=== PATIENT | male | born 1930 | race Hispanic/Latino ===

== ENCOUNTER 2019-02-04 10:05 | Observation (INO) | payer MEDICARE ==
--- NOTE | 2019-01-31 09:54 | Diagnostic Imaging Report ---
EXAMINATION: PA and lateral views of the chest. COMPARISON: None CLINICAL HISTORY: Preoperative for arm surgery DISCUSSION: The lungs are well-inflated. Coarse prominence of the pulmonary interstitium likely age-related fibrotic changes. No gross consolidation, pleural effusion, or pneumothorax. Cardiomediastinal contour is notable for tortuosity and atherosclerotic calcification of the thoracic aorta and prominence of the central pulmonary arteries suggestive of pulmonary hypertension. Normal heart size. Acute, comminuted and markedly displaced fracture of the surgical neck of the right humerus. Regional osseous structures are otherwise intact. IMPRESSION: No acute cardiopulmonary abnormality. Acute, comminuted and displaced fracture of the surgical neck of the right humerus. Signed by: Dr. Bob Snyder M.D. on 01/31/2019 9:50 AM
[2019-02-03 08:36] LABS: BASOPHILS % 0.7 % (0.0-1.0); EOSINOPHILS # (AUTO) 0.2 (0.0-0.4); EOSINOPHILS % 4.3 % (0.0-6.0); HEMATOCRIT 35.6 % (38.2-49.6); HEMOGLOBIN 11.8 g/dL (14.0-18.0); LYMPHOCYTES # (AUTO) 1.2 (1.0-3.2); LYMPHOCYTES % 28.8 % (18.0-39.1); MEAN CORPUSCULAR HEMOGLOBIN 34.9 pg (28-32); MEAN CORPUSCULAR HGB CONC 33.1 g/dL (31-35); MEAN CORPUSCULAR VOLUME 105.3 fL (81-99); MONOCYTES # (AUTO) 0.3 (0.2-0.8); MONOCYTES % 6.4 % (4.4-11.3); NEUTROPHILS # (AUTO) 2.5 (2.1-6.9); NEUTROPHILS % 59.6 % (38.7-80.0); PLATELET COUNT 256 x10e3/uL (140-360); RED BLOOD COUNT 3.38 x10e6/uL (4.3-5.7); RED CELL DISTRIBUTION WIDTH 13.3 % (11.7-14.4)
[2019-02-03 08:44] LABS: ANION GAP 10.9 mmol/L (8-16); BLOOD UREA NITROGEN 15 mg/dL (7-26); BUN/CREATININE RATIO 18 (6-25); CALCIUM 9.6 mg/dL (8.4-10.2); CARBON DIOXIDE 27 mmol/L (22-29); CHLORIDE 105 mmol/L (98-107); CREATININE, SERUM 0.84 mg/dL (0.72-1.25); EST GLOMERULAR FILTRATION RATE > 60 ML/MIN (60-); GLUCOSE 119 mg/dL (74-118); POTASSIUM 3.9 mmol/L (3.5-5.1); SODIUM 139 mmol/L (136-145)
[~2019-02-04] VITALS: Ht 170.2 cm; Wt 75.9 kg
[~2019-02-04 10:05] MED LIST: ASPIR 8181 MG PO; CRESTOR10 MG PO; FENOFIBRATE145 MG PO; LEVOTHYROXINE50 MCG PO; METFORMIN HCL500 MG PO; PIOGLITAZONE HC45 MG PO; TYLENOL PO
--- OUTSIDE RECORDS SUMMARY | 2019-02-04 10:08 | XMS REPORT ---
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 Allergies, Adverse Reactions, Alerts This patient has no known allergies or adverse reactions. Medications This patient has no known medications. Results Test Description Test Time Test Comments Text Results Atomic Results Result Comments CHEST 2 VIEWS 2019-01-31 09:48:00 [place] [address] Patient Name: SALEEM JAEGER MR #: [id number] : 1930 Age/Sex: 88/M Req #: [id number] Adm Physician: Ordered by: BOB EPPERSON MD Report #: [id number] Location: OR Room/Bed: Procedure: [id number] DX/CHEST 2 VIEWS Exam Date: 01/31/19 Exam Time: 929 REPORT STATUS: Signed EXAMINATION: PA and lateral views of the chest. COMPARISON: None CLINICAL HISTORY: Preoperative for arm surgery DISCUSSION: The lungs are well-inflated. Coarse prominence of the pulmonary interstitium likely age-related fibrotic changes. No gross consolidation, pleural effusion, or pneumothorax. Cardiomediastinal contour is notable for tortuosity and atherosclerotic calcification of the thoracic aorta and prominence of the central pulmonary arteries suggestive of pulmonary hypertension. Normal heart size. Acute, comminuted and markedly displaced fracture of the surgical neck of the right humerus. Regional osseous stru ctures are otherwise intact. IMPRESSION: No acute cardiopulmonary abnormality. Acute, comminuted and displaced fracture of the surgical neck of the right humerus. Signed by: Dr. Bob Maldonado M.D. on 01/31/2019 9:50 AM Dictated By: BOB MALDONADO MD 9 Transcribed By: QUE on 01/31/19949 COPY TO: BOB EPPERSON MD
[2019-02-04] MEDS ORDERED: NEOSTIGMINE 1 MG/ML 10ML VIAL ONE (10:37)
[2019-02-04] MEDS ORDERED: BUPIVACAINE 0.25%/EPI 30ML SDV INJ ONE (10:37)
[2019-02-04] MEDS ORDERED: CELECOXIB 200 MG CAP ONE (10:38)
[2019-02-04] MEDS ORDERED: TRANEXAMIC ACID 1,000 MG/10 ML ML ONE (10:38)
[2019-02-04] MEDS ORDERED: GABAPENTIN 300 MG CAP ONE (10:39)
[2019-02-04] MEDS ORDERED: DEXAMETHASONE SOD PHOS 10 MG/1 ML VIAL ONE (10:39)
[2019-02-04] MEDS ORDERED: CEFAZOLIN SOD 2 GM/D5W 50ML 50 ML IV ONE (10:39)
[2019-02-04] MEDS ORDERED: ROPIVACAINE 246.25 MG, EPINEPHRINE HCL 1:1000 1ML 0.5 MG, CLONIDINE HCL 0.08 MG, KETORO... INJ ONE ×5 (11:30)
[2019-02-04] MEDS ORDERED: HYDROCODONE/APAP 7.5MG-325MG 1 EA TAB PO PRN (13:15)
[2019-02-04] MEDS ORDERED: DIPHENHYDRAMINE HCL INJ 50 MG/ML VIAL IM/IV PRN (13:15)
[2019-02-04] MEDS ORDERED: KETOROLAC TROMETHAMINE 30 MG/ML VIAL IV PRN (13:15)
[2019-02-04] MEDS ORDERED: ZOLPIDEM TARTRATE 5 MG TAB PO PRN (13:15)
[2019-02-04] MEDS ORDERED: HYDROCODONE/APAP 5MG-325MG TAB PO PRN (13:15)
[2019-02-04] MEDS ORDERED: ONDANSETRON HCL INJ 2MG/ML 2ML 2 MG/ML VIAL IV PRN (13:15)
[2019-02-04] MEDS ORDERED: ACETAMINOPHEN 650 MG SUPP PR PRN (13:15)
[2019-02-04] MEDS ORDERED: DOCUSATE SODIUM 100 MG CAP PO PRN (13:15)
[2019-02-04] MEDS ORDERED: PROMETHAZINE HCL (IM) 25 MG/ML VIAL INJ PRN (13:15)
--- NOTE | 2019-02-04 13:57 | Diagnostic Imaging Report ---
Right shoulder radiograph-1 view HISTORY: Status post right shoulder hemiarthroplasty. COMPARISON: Chest radiograph 01/31/2019. FINDINGS: Status post interval right humeral hemiarthroplasty. Prosthesis appears intact. There is subcutaneous air and overlying skin tiffany, consistent with recent surgery. Alignment appears maintained. Again noted are findings of comminuted right proximal humeral fracture. There are patchy opacities in the right lower lung. IMPRESSION: Postsurgical changes status post right shoulder hemiarthroplasty for comminuted right proximal humeral fracture as above. Patchy opacities in the right lower lung, likely atelectasis. Signed by: Dr. Astrid Blake MD on 02/04/2019 1:53 PM
[2019-02-04 16:37] VITALS: BP 147/66
[2019-02-04 16:52] VITALS: BP 147/66
[2019-02-04] MEDS ORDERED: CELECOXIB 100 MG CAP PO SCH (17:00)
[2019-02-04] MEDS: ACETAMINOPHEN 1000 MG/100 ML IV SCH ×2 (17:11→23:49)
[2019-02-04] MEDS: ASPIRIN 325 MG TAB PO SCH (17:11)
[2019-02-04] MEDS: SODIUM CHLORIDE 0.9% 1000ML 1,000 ML IV SCH ×2 (17:11→23:03)
[2019-02-04] MEDS: CEFAZOLIN SOD 1 GM/NS 50ML 50 ML IV SCH (17:31)
--- NOTE | 2019-02-04 17:59 | Operative Report ---
DATE OF PROCEDURE: 02/04/2019 SURGEON: Bob Arboleda MD STONE PLANER: Darrius Rosales, certified PA. PREOPERATIVE DIAGNOSES: Right shoulder three-part proximal humerus fracture with dislocation of the humeral head. POSTOPERATIVE DIAGNOSES: Right shoulder three-part proximal humerus fracture with dislocation of the humeral head. PROCEDURE: Right shoulder hemiarthroplasty. INDICATIONS: The patient is an 88-year-old gentleman, who fell and sustained a fracture dislocation of his right shoulder. This was seen at an outside institution. He was released from the hospital. He presented to my office a couple of weeks after the fracture. The findings and options have been discussed. 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 We plan on a right shoulder hemiarthroplasty. The risks and benefits have been explained. He and his son state they understand and wish to proceed. DESCRIPTION OF PROCEDURE: The patient was brought to the operating room and placed under general anesthetic. He received a regional block and prophylactic antibiotics in the holding area. He was positioned in the beach chair position on the shoulder table. His right upper extremity was prepped and draped in a sterile manner. Approximately 10 mL of 0.5% Marcaine with epinephrine was injected into the axillary fold for hemostasis. An incision was made in the deltopectoral interval was identified. Care was taken to avoid injury to the cephalic vein. A self-retaining Whatley Araujo retractor was placed. A blunt dissection was carried out. There was a full-thickness rotator cuff tear that allowed entrance into the left shoulder joint. A large fracture hematoma was evacuated. The fracture fragments of the lesser and greater tuberosities were carefully dissected out and mobilized. Retention stitches were placed in the myotendinous junction. The humeral head had been dislocated in the inferior aspect of the shoulder. This was carefully extracted. This was sized on the back table at 52 mm x 21 mm. There was nearly an exact match of the size. Attention was directed towards the proximal humerus. The taper pin reamers were used to open the canal. A 12 mm reamer had good endosteal contact. A [employer] global fracture system was used throughout the case. A size 12 with a standard proximal body was trialed. The 52 mm x 21 mm humeral head was also trialed. This was felt to provide appropriate fill of the joint and shinto of length. The trial implants were removed. The shoulder was thoroughly irrigated with sterile saline. The implant was opened and seated. This was in roughly 30 degrees of retroversion. I also used the bicipital groove as a reference for the anterior fin. The biceps tendon was frayed and nearly ruptured. It was excised. Once the body of the stem was impacted, the humeral head was seated. The reduction was performed. Two #1 Ethibond stitches had been preloaded onto the suture holes of the stem. The lesser and greater tuberosities were then anchored onto the stem. Cancellous bone graft harvested from the humeral head were also impacted into this area. A nice secure fixation of the lesser and greater tuberosities was obtained. A portion of a 100 mL premixed pericapsular rec injection was injected around the shoulder. The deltopectoral interval and skin were closed with subcuticular Vicryl. The skin was closed with tiffany. A sterile bandage and an UltraSling were applied. Estimated blood loss was 50 mL. At the end of the procedure, all needle and sponge counts were correct. Bob Arboleda MD DR/JESSICA /[id number]
[2019-02-04] MEDS ORDERED: LIDOCAINE HCL 2% LOCAL INJ 5 ML SDV VIAL INJ ONE (19:07)
[2019-02-04] MEDS ORDERED: DEXAMETHASONE SOD PHOS INJ 4 MG/ML VIAL ONE (19:07)
[2019-02-04] MEDS ORDERED: ROCURONIUM BROMIDE 10 MG/ML 5ML VIAL ONE (19:07)
[2019-02-04] MEDS ORDERED: SEVOFLURANE INHAL SOLN 250 ML PEN BTL ONE (19:07)
[2019-02-04] MEDS ORDERED: PROPOFOL IV EMULSION 10 MG/ML 20 ML VIAL ONE (19:07)
[2019-02-04] MEDS ORDERED: PHENYLEPHRINE HCL 1% 10 MG/ML VIAL ONE (19:07)
[2019-02-04] MEDS ORDERED: NEOSTIGMINE 5 MG/5ML SYR ONE (19:07)
[2019-02-04] MEDS ORDERED: GLYCOPYRROLATE INJ 1MG/ 5 ML SYR ONE (19:07)
[2019-02-04] MEDS ORDERED: MIDAZOLAM HCL 2 MG/2 ML VIAL ONE (19:07)
[2019-02-04] MEDS ORDERED: LIDOCAINE HCL 2% LOCAL 20 ML VIAL ONE (19:07)
[2019-02-04] MEDS ORDERED: FENTANYL CITRATE/PF 100MCG/2 ML INJ ONE (19:07)
[2019-02-04] MEDS ORDERED: ONDANSETRON HCL INJ 2MG/ML 2ML 2 MG/ML VIAL ONE (19:07)
[2019-02-04] MEDS ORDERED: ROPIVACAINE 0.5% 5 MG/ML 30 ML SDV ONE (19:07)
[2019-02-04 20:00] VITALS: BP 117/57
[2019-02-04 20:15] VITALS: BP 117/57
[2019-02-05] VITALS: BP 97/51
[2019-02-05] MEDS: CEFAZOLIN SOD 1 GM/NS 50ML 50 ML IV SCH ×2 (00:21→08:55)
[2019-02-05 04:00] VITALS: BP 92/53
[2019-02-05] MEDS: ACETAMINOPHEN 1000 MG/100 ML IV SCH (05:39)
[2019-02-05 06:13] LABS: HEMATOCRIT 28.5 % (38.2-49.6); HEMOGLOBIN 9.3 g/dL (14.0-18.0)
--- NOTE | 2019-02-05 07:27 | NUR ---
Received patient in report this morning. Family member at bedside. Patient resting in bed. No S&S of distress noted.
[2019-02-05 08:08] VITALS: BP 111/56
--- NOTE | 2019-02-05 08:18 | Consultation ---
DATE OF CONSULTATION: REASON FOR CONSULTATION: Postop medical management. HISTORY OF PRESENT ILLNESS: The patient is an 88-year-old gentleman, who presented with a right humeral neck fracture status post repair, who is doing well postoperatively with minimal pain. Denies any chest pain, fever, chills, nausea, vomiting, headache, shortness of breath, or dizziness. PAST MEDICAL HISTORY: Significant for diabetes, hypothyroidism, hyperlipidemia, hypertension. MEDICATIONS: See MAR. ALLERGIES: NONE. SOCIAL HISTORY: . Nondrinker, nonsmoker. FAMILY HISTORY: Noncontributory. PHYSICAL EXAMINATION: VITAL SIGNS: His temperature is 97.1, pulse 71, blood pressure 97/51, sats 97% on room air. GENERAL: No apparent distress, lying in bed. NECK: Supple. LUNGS: Clear to auscultation bilaterally. CARDIOVASCULAR: Regular rate and rhythm. ABDOMEN: Good bowel sounds. Soft, nontender. EXTREMITIES: No clubbing or cyanosis. His right arm is in a sling. NEUROLOGIC: Nonfocal. ASSESSMENT AND PLAN: 1. Status post right neck humeral fracture repair. Continue with postop pain control. 2. Anemia. Continue to monitor. 3. Hypertension. Continue to monitor since it is actually low right now, but he is asymptomatic. 4. Diabetes. Continue current care. Monitor his sugars. 5. Hyperlipidemia. We will restart his cholesterol medicines at discharge. 6. Hypothyroidism. We will restart his following medicines at discharge. Please see hospital chart for details. MD ITZEL Matias/JESSICA /[id number]
--- NOTE | 2019-02-05 08:30 | NUR ---
Patient resting in bed, family member at bedside. No pain reported at this time. Lung sounds clear. Bowel sounds active. SCDs on. Skin in tact. No edema noted. L wrist 20g IV asymptomatic, intact, patent. Will continue to monitor.
[2019-02-05] MEDS: ASPIRIN 325 MG TAB PO SCH (08:55)
[2019-02-05] MEDS ORDERED: PIOGLITAZONE HCL 15 MG TAB PO SCH (09:00)
[2019-02-05] MEDS ORDERED: PIOGLITAZONE HCL 45 MG TAB PO SCH (09:00)
[2019-02-05] MEDS ORDERED: METFORMIN HCL 500 MG TAB PO SCH (09:00)
[2019-02-05] MEDS: SODIUM CHLORIDE 0.9% 1000ML 1,000 ML IV SCH (09:03)
[2019-02-05] MEDS ORDERED: ASPIRIN325 MG PO (11:06)
[2019-02-05] MEDS ORDERED: NORCO 5-325 TA1 EACH PO (11:07)
[2019-02-05 11:10] VITALS: BP 111/56
[2019-02-05 12:13] VITALS: BP 102/50
[2019-02-05] MEDS ORDERED: ONDANSETRON HCL 4 MG ORAL DISINTEGRATING TAB PO PRN (12:15)
--- NOTE | 2019-02-05 12:26 | NUR ---
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 CM/SW role and care transitions discussed. Anticipated discharge plan discussed along with duration of care. CM/SW discussed patients right to make decisions in care. CM/SW work hours given. Patient lives: with son Nemesio Stephens Admit/Transfer: from PACU Hospital/ER visits since last admit: 0 POA/Emergency contact: shakila Stephens [phone] Current/Previous Home Health: none Received order for home health. Spoke to pt and son at bedside. They are agreeable with home health. Choice letter signed for [facility] and placed in chart. Copy to pt. Referral was faxed to [facility] at [phone] / P [phone] PCP/Follow-up Care: PCP Dr. Renuka Kwan; pt will follow up with Dr. Arboleda next Current/Previous DME: none Medications (referring to index hospitalization or the first time you were in the hospital) a. Were changes made in your medications when you were in the hospital on [date of index hospitalization]? n/a b. Did you understand the changes? n/a c. Were you able to obtain your new medications right away? n/a d. Were you able to take your medications like the doctor wanted you to? n/a e. Did the hospital give you an accurate, easy to understand list of medications when you left? n/a Scale of 1-10 how comfortable does patient feel with disease management in outpatient settin Other Services: none Employment Status: retired Areas of Concerns: recent surgery Referral Needs: home health Education Needs: post operative instructions, medical management IMM/GATES given and signed (if applicable): GATES in chart Goal for discharge: home with home health CM/SW left business card at the bedside with contact information. Name and number was also written on the patients whiteboard. Patient verbalized understanding of discussion. CM will follow-up with ongoing discharge and transition of care needs.
[2019-02-05] MEDS ORDERED: ACETAMINOPHEN 1000 MG/100 ML IV PRN (13:15)
--- NOTE | 2019-02-05 13:30 | NUR ---
L wrist 20g IV removed at this time. Catheter tip intact. Pressure dressing applied.
--- NOTE | 2019-02-05 13:50 | NUR ---
Patient discharged at this time. Assisted by staff via wheelchair to personal auto. Discharge instructions given including follow up appointments, new medication, continue home meds, keep immobilizer in place and dry until follow up appointment. Patient given discharge instructions in [place].
[2019-02-05] MEDS ORDERED: CELECOXIB 200 MG CAP PO SCH (17:00)
[2019-02-05] MEDS ORDERED: SIMVASTATIN 20 MG TAB PO SCH (21:00)
[2019-02-05] MEDS ORDERED: SIMVASTATIN 40 MG TAB PO SCH (21:00)
[2019-02-05] MEDS ORDERED: FENOFIBRATE 145 MG TAB PO SCH (21:00)
== END 2019-02-05 13:50 | disposition home health service (06) ==
LOC: OR 10:05 → PACU V 13:06 → MED/SURG 15:46
PROVIDERS: ADMIT Specialist; ATTEND Specialist
DX: S42.231A 3-part fracture of surgical neck of right humerus, initial encounter for closed fracture (principal); S43.034A Inferior dislocation of right humerus, initial encounter; E11.9 Type 2 diabetes mellitus without complications; E78.00 Pure hypercholesterolemia, unspecified; Z79.82 Long term (current) use of aspirin; D64.9 Anemia, unspecified; E03.9 Hypothyroidism, unspecified; Z79.84 Long term (current) use of oral hypoglycemic drugs; Z01.810 Encounter for preprocedural cardiovascular examination; Z01.812 Encounter for preprocedural laboratory examination; Z01.811 Encounter for preprocedural respiratory examination
CPT/HCPCS: 23470; 36415 ×3; 71046; 73020; 80048; 82948 ×2; 85014; 85018; 85025; 86850; 86900; 86920; 93005; 97116 ×2; 97162; G0378 ×2; J0131 ×2; J0171; J0690 ×3; J1100 ×2; J1885; J2001 ×2; J2250; J2370; J2405; J2704; J2795; J3490; J7030 ×2; J2710